=== PATIENT | male | born 1995 | race Caucasian/White ===

== ENCOUNTER 2018-02-02 02:21 | Emergency (ER) | payer MEDICAID ==
[2018-02-02 02:28] VITALS: BP 129/81
[2018-02-02] MEDS ORDERED: ERYTHROMYCIN 0.5% OPH OINTMENT 3.5 GM (ER DISP) OD PRN (02:48)
--- NOTE | 2018-02-02 02:52 | ER Document Report ---
ED General - General Chief Complaint: Eye Problem Stated Complaint: EYE PAIN Time Seen by Provider: 02/02/18 02:34 Notes: Patient is a 23-year-old male presents with complaint of abrasion to his right eye. Patient says his writing back for truck and the limb hit him in the face. He says initially he could see a small black speck in his eye but that since washed away. He says he still has a red spot over his eye does hurt and is little bit irritated. He denies any change in vision. He denies any other injuries. Denies any fluid leaking from the site. No other complaints at this time. TRAVEL OUTSIDE OF THE [place] IN LAST 30 DAYS: No - Related Data Allergies/Adverse Reactions: No Known Allergies Allergy (Unverified 10/30/15 17:35) Past Medical History - Social History Smoking Status: Unknown if Ever Smoked Frequency of alcohol use: None Drug Abuse: None Family History: Reviewed & Not Pertinent Pulmonary Medical History: Reports: Hx Asthma GI Medical History: Reports: Hx Gastroesophageal Reflux Disease Musculoskeltal Medical History: Reports Hx Musculoskeletal Trauma - Right foot fracture Traumatic Medical History: Reports: Hx Fractures - Right foot Past Surgical History: Reports: Hx Adenoidectomy, Hx Tonsillectomy - Immunizations Immunizations up to date: Yes Hx Diphtheria, Pertussis, Tetanus Vaccination: Yes Review of Systems - Review of Systems Notes: My Normal Review Basic REVIEW OF SYSTEMS: CONSTITUTIONAL : Denies fever, chills, or sweats. Denies recent illness. EENT: Pain in right eye. NEUROLOGICAL: Denies altered mental status or loss of consciousness. Denies headache. ALL OTHER SYSTEMS REVIEWED AND NEGATIVE. Physical Exam - Vital signs Vitals: Temp Pulse Resp BP Pulse Ox 98.9 F 106 H 18 129/81 H 99 02/02/18 02:27 02/02/18 02:27 02/02/18 02:27 02/02/18 02:27 02/02/18 02:27 - Notes Notes: General Appearance: Well nourished, alert, cooperative, no acute distress, no obvious discomfort. well appearing. Vitals: reviewed, See vital signs table. Head: no swelling or tenderness to the head Eyes: PERRL, EOMI, left conjunctivitis completely clear. Patient does have a area of redness approximately the 3 o'clock position of the right eye. No fluid drainage. Fluorescein staining shows evidence of corneal abrasion at the 3 o'clock position. Negative Edvin sign. I do not see evidence of foreign body on slit-lamp examination. Neuro: speech clear, oriented x 3, normal affect, responds appropriately to questions. Course - Re-evaluation Re-evalutation: 02/02/18 05:32 Patient looks well. Refill is safe to be discharged home. He has what appears to be corneal abrasion. I will give him erythromycin ointment. I do not see evidence of foreign body. No evidence of globe rupture or leak. Encourage him to follow-up with the strip machine operator in 3-4 days if he still having any symptoms whatsoever. Encouraged to return to ER immediately if he has decreasing vision, redness or swelling to the eyelid is worsening, abnormal drainage from the eye, or if he has any further concerns. Patient agrees with plan and will be discharged home. Dictation of this chart was performed using voice recognition software; therefore, there may be some unintended grammatical errors. - Vital Signs Vital signs: Temp Pulse Resp BP Pulse Ox 98.9 F 106 H 18 129/81 H 99 02/02/18 02:27 02/02/18 02:27 02/02/18 02:27 02/02/18 02:27 02/02/18 02:27 Discharge - Discharge Clinical Impression: Corneal abrasion Qualifiers: Encounter type: initial encounter Laterality: right Qualified Code(s): S05.01XA - Injury of conjunctiva and corneal abrasion without foreign body, right eye, initial encounter Condition: Good Disposition: HOME, SELF-CARE Additional Instructions: Please apply a thin layer of the erythromycin to your right eye 5 times a day for 4 days. Please follow up with the strip machine operator, Dr. Mena, if you still have any symptoms after 3 days. Please return to the ER immediately if you have increasing redness of your eye, abnormal eye drainage, fevers, worsening vision , or if you feel unwell. Referrals: DINA MENA MD [ACTIVE STAFF] - Follow up in 3-5 days
== END 2018-02-02 03:13 | disposition home or self-care (01) ==
LOC: ER 02:21
DX: S05.01XA Injury of conjunctiva and corneal abrasion without foreign body, right eye, initial encounter (principal); H57.11 Ocular pain, right eye; W22.8XXA Striking against or struck by other objects, initial encounter; J45.909 Unspecified asthma, uncomplicated
CPT/HCPCS: 99283